=== PATIENT | female | born 1950 | race Caucasian/White ===

== ENCOUNTER 2020-04-12 05:59 | Emergency (ER) | payer MEDICARE, OTHER ==
[~2020-04-12] VITALS: Ht 167.7 cm; Wt 79.5 kg
--- OUTSIDE RECORDS SUMMARY | 2020-04-12 06:08 | XMS REPORT | Continuity of Care Document ---
Author Organization Unknown Address Unknown Phone Unavailable Allergies Active Description Code Type Severity Reaction Onset Reported/Identified Relationship to Patient Clinical Status Yes No Known Allergies No Known Allergies Drug Allergy Unknown N/A 04/09/2020 Medications There is no data. Problems There is no data. Procedures There is no data. Results Test Result Range LIPID PANEL - 06/09/19 08:57 CHOLESTEROL, TOTAL 204 mg/dL <200 HDL CHOLESTEROL 47 mg/dL >50 TRIGLYCERIDES 87 mg/dL <150 LDL-CHOLESTEROL 138 mg/dL (calc) NRG CHOL/HDLC RATIO 4.3 (calc) <5.0 NON HDL CHOLESTEROL 157 mg/dL (calc) <13 0 CMP - 06/09/19 08:57 GLUCOSE 93 mg/dL 65-99 UREA NITROGEN (BUN) 17 mg/dL 7-25 CREATININE 0.85 mg/dL 0.50-0.99 eGFR NON-AFR. AZERBAIJANI 71 mL/min/1.73m2 > OR = 60 eGFR 82 mL/min/1.73m2 > OR = 60 BUN/CREATININE RATIO NOT APPLICABLE (calc) 6-22 SODIUM 143 mmol/L 135-146 POTASSIUM 4.3 mmol/L 3.5-5.3 CHLORIDE 109 mmol/L 98-110 CARBON DIOXIDE 25 mmol/L 20-32 CALCIUM 9.7 mg/dL 8.6-10.4 PROTEIN, TOTAL 6.2 g/dL 6.1-8.1 ALBUMIN 4.2 g/dL 3.6-5.1 GLOBULIN 2.0 g/dL (calc) 1.9-3.7 ALBUMIN/GLOBULIN RATIO 2.1 (calc) 1.0-2. 5 BILIRUBIN, TOTAL 0.4 mg/dL 0.2-1.2 ALKALINE PHOSPHATASE 117 U/L 33-130 AST 15 U/L 10-35 ALT 12 U/L 6-29 CBC W/DIFF - 04/09/20 09:58 BASOPHIL # 0.1 k/cumm 0.0-0.2 BASOPHIL % 0.9 % 0-1 EOSINOPHIL # 0.1 k/cumm 0.1-0.5 EOSINOPHIL % 0.7 % 2-4 GRANULOCYTE # 6.0 k/cumm 2.0-9.0 GRANULOCYTE % 55.6 % 50-75 LYMPHOCYTE # 3.8 k/cumm 1.0-4.0 LYMPHOCYTE % 34.9 % 20-30 MEAN CELL HGB 25.4 pg 27.0-33.0 MEAN CELL HGB CONCENTRATION 30.6 g/dL 32 .0-37.0 MEAN CELL VOLUME 83.0 fl 80.0-100.0 MONOCYTE # 0.8 k/cumm 0.1-1.0 MONOCYTE % 7.4 % 4-6 MEAN PLATELET VOLUME 10.2 fl 8.5-10.9 RED BLOOD CELL 3.35 m/cumm 4.00-6.00 RED CELL DISTRIBUTION WIDTH 14.3 % 11 .0-15.6 WHITE BLOOD CELL 10.8 k/cumm 5.0-10.0 HEMOGLOBIN 8.5 gm/dL 12.0-16.0 HEMATOCRIT 27.8 % 37.0-47.0 NRBC % 0.0 /100 WBC 0.0-0.0 PLATELET COUNT 384 k/cumm 150-400 IMMATURE GRANULOCYTE % 0.5 % 0.0-0.6 IMMATURE GRANULOCYTE # 0.05 k/cumm 0.00- 0.09 METABOLIC PANEL, BASIC - 04/09/20 09:58 POTASSIUM 3.8 mmol/L 3.5-5.3 EST GFR (MDRD) 56 mL/min > 59 ANION GAP 9 mmol/L 5-15 GLUCOSE 145 mg/dL 70-99 CALCIUM 8.9 mg/dL 8.5-10.1 BLOOD UREA NITROGEN 12 mg/dL 7-20 CREATININE 0.98 mg/dL 0.60-1.00 SODIUM 139 mmol/L 135-148 CHLORIDE 107 mmol/L 98-110 CARBON DIOXIDE 23 mmol/L 21-32 THYROID STIM HORMONE (TSH) - 04/09/20 09 :58 THYROID STIM HORMONE (TSH) 1.79 uIU/mL 0 .34-4.82 TROPONIN I BEDSIDE - 04/09/20 10:01 METHOD Bedside TROPONIN I < 0.04 ng/mL < 0.11 Radiology Report from [facility] on 04/09/20 10:50:00 PATIENT NAME: MARYLU HUFFMAN UNIT NO: [id number] EXAMS: CPT CODE: [id number] XR CHEST AP/PA ONLY [id number] REASON FOR EXAM: Cough. Shortness of air. Evaluate for pneumonia. COMPARISON: None TECHNIQUE: Single frontal portable view of the chest. Time of exam: 10:16 AM FINDINGS: The cardiac silhouette is normal in size and shape. Pulmonary vascularity is within normal limits. The lungs show no focal consolidation. No pneumothorax is seen. The mediastinum is not widened. A moderate-sized hilar hernia is seen. The bony and soft tissue structures are age-appropriate. IMPRESSION: 1. No acute cardiopulmonary bodies are seen. 2. Moderate-sized hiatal hernia. at 1045 Reported and signed by: YOAN GUERRERO MD CC: TECHNOLOGIST: SOTERO SCOTT TRANSCRIBED DATE/Time: 04/09/2020 1045 BY: PGRONT EXAM COMPLETE DATE/TIME: [id number] D/TM:04/09/2020 (1050) [facility] NAME: DARÍO HUFFMAN [address] HP: [phone] AGE: 70 S:F [place], [place] [address] : 1950 LOC: [facility] PHYS: Joey Lee MD PHONE #: [phone] EXAM DATE: 04/09/2020 STATUS: REG ER FAX #: [phone] A#: [id number] U#: [id number] PAGE 1 Signed Report *Final Page* Encounters ACCT No. Visit Date/Time Discharge Status Pt. Type Provider Facility Loc./Unit Complaint [id number] 06/16/2019 08:30:00 06/16/2019 23:59: 59 [id number] 06/09/2019 08:45:00 Document Registration [id number] 04/09/2020 09:33:00 020 11:27:00 DIS Emergency Joey Infante MD [facility]
--- NOTE | 2020-04-12 06:22 | ED Cardiac General ---
History of Present Illness General Chief Complaint: Cardiac/General Problems Stated Complaint: CARDIAC PROBLEMS Source: patient, family Exam Limitations: no limitations History of Present Illness Date Seen by Provider: April 12, 2020 Time Seen by Provider: 06:12 Initial Comments 70-year-old female presents to emergency room with daughter present. Patient reports that she noticed rapid heartbeat at 2:50 AM. Patient reports she has a rapid heartbeat and she has had this earlier this week and was seen in the emergency room but her tachycardia reverted to normal sinus rhythm and did not have any treatment.. Her heart was 158 blood pressure 115/86. Additionally the patient states that she was recently diagnosed with anemia with a hemoglobin 8.5 and has an appointment with Dr. Stover at 9:15 this morning. Only other significant past medical history is hypertension treated with diltiazem. She denies chest pain or shortness of breath no history of coughing no fever no signs of young virus infection. No one in her immediate community is ill. Dr. Stover is her attending provider. She denies any symptoms of UTI. She has had both knees replaced and has no difficulty with use at this time. Timing/Duration: 4-6 hours Severity: mild Activities at Onset: rest (started at 2:50 AM) Prior CP/Workup: other (patient reports that 4 days ago she was in the emergency room for rapid heartbeat but this resolved without treatment in the emergency room.) NTG SL RECRUITING ASSISTANT: No ASA po RECRUITING ASSISTANT: No Associated Systoms: Weakness (and dizziness) Allergies and Home Medications Allergies Coded Allergies: No Known Drug Allergies (Unverified , 04/12/20) Patient Home Medication List Home Medication List Reviewed: Yes Review of Systems Review of Systems Constitutional: dizziness (with tachyarrhythmia) EENTM: No Symptoms Reported Respiratory: No Symptoms Reported Cardiovascular: Irregular Heart Rate (tachycardia arrhythmia), Lightheadedness Gastrointestinal: No Symptoms Reported, Other (patient however was recently d iagnosed with the anemia hemoglobin 8.5 and has an appointment with Dr. Stover this morning) Genitourinary: No Symptoms Reported Musculoskeletal: muscle weakness (was likely secondary to anemia hemoglobin 8.5) Skin: no symptoms reported Psychiatric/Neurological: No Symptoms Reported, Anxiety (patient shows some anxiety) Endocrine: No Symptoms Reported Hematologic/Lymphatic: Anemia (recent diagnosis of hemoglobin 8.5) Past Fqthyvg-Tqksxz-Yhgcok Hx Patient Social History Recent Foreign Travel: No Contact w/Someone Who Travel: No Physical Exam Vital Signs Vital Signs - First Documented 04/12/20 06:00 Temp 36.2 Pulse 150 Resp 20 B/P (MAP) 115/86 (96) Pulse Ox 99 O2 Delivery Room Air Capillary Refill : Height, Weight, BMI Height: '" Weight: lbs. oz. kg; BMI Method: General Appearance: Anxious, Mild Distress HEENT: PERRL/EOMI, Normal ENT Inspection Neck: Normal Inspection Respiratory: Chest Non Tender, Lungs Clear, Normal Breath Sounds, No Accessory Muscle Use, No Respiratory Distress Cardiovascular: No Edema, No Gallop, No JVD, No Murmur, Normal Peripheral Pulses, Tachycardia (heart rate 158) Gastrointestinal: Normal Bowel Sounds, No Organomegaly, No Pulsatile Mass, Non Tender, Soft Extremity: Normal Capillary Refill, Normal Inspection, Normal Range of Motion, Non Tender, No Calf Tenderness, No Pedal Edema, Other (scars from bilateral TKA) Neurologic/Psychiatric: Alert, Oriented x3, No Motor/Sensory Deficits, Normal Mood/Affect (with mild anxiety from tachycardia and being in the emergency room), 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 Skin: Normal Color, Warm/Dry, Cool Lymphatic: No Adenopathy Progress/Results/Core Measures Results/Orders Lab Results Laboratory Tests Test 04/12/20 06:25 04/12/20 08:08 Range/Units White Blood Count 11.7 H 4.3-11.0 10^3/uL Red Blood Count 3.27 L 4.35-5.85 10^6/uL Hemoglobin 8.1 L 11.5-16.0 G/DL Hematocrit 27 L 35-52 % Mean Corpuscular Volume 84 80-99 FL Mean Corpuscular Hemoglobin 25 25-34 PG Mean Corpuscular Hemoglobin Concent 30 L 32-36 G/DL Red Cell Distribution Width 14.6 H 10.0-14.5 % Platelet Count 390 130-400 10^3/uL Mean Platelet Volume 11.2 H 7.4-10.4 FL Neutrophils (%) (Auto) 54 42-75 % Lymphocytes (%) (Auto) 34 12-44 % Monocytes (%) (Auto) 9 0-12 % Eosinophils (%) (Auto) 2 0-10 % Basophils (%) (Auto) 1 0-10 % Neutrophils # (Auto) 6.3 1.8-7.8 X 10^3 Lymphocytes # (Auto) 4.0 1.0-4.0 X 10^3 Monocytes # (Auto) 1.0 0.0-1.0 X 10^3 Eosinophils # (Auto) 0.2 0.0-0.3 10^3/uL Basophils # (Auto) 0.1 0.0-0.1 10^3/uL Neutrophils % (Manual) 48 % Lymphocytes % (Manual) 41 % Monocytes % (Manual) 4 % Eosinophils % (Manual) 3 % Basophils % (Manual) 1 % Band Neutrophils 3 % Anisocytosis SLIGHT Elliptocytes SLIGHT Sodium Level 141 135-145 MMOL/L Potassium Level 4.0 3.6-5.0 MMOL/L Chloride Level 105 98-107 MMOL/L Carbon Dioxide Level 20 L 21-32 MMOL/L Anion Gap 16 H 5-14 MMOL/L Blood Urea Nitrogen 17 7-18 MG/DL Creatinine 0.84 0.60-1.30 MG/DL Estimat Glomerular Filtration Rate > 60 BUN/Creatinine Ratio 20 Glucose Level 123 H 70-105 MG/DL Calcium Level 9.2 8.5-10.1 MG/DL Corrected Calcium 9.3 8.5-10.1 MG/DL Magnesium Level 2.1 1.6-2.4 MG/DL Total Bilirubin 0.2 0.1-1.0 MG/DL Aspartate Amino Transf (AST/SGOT) 17 5-34 U/L Alanine Aminotransferase (ALT/SGPT) 16 0-55 U/L Alkaline Phosphatase 99 40-136 U/L Troponin I < 0.30 0.30 <0.30 NG/ML Total Protein 6.2 L 6.4-8.2 GM/DL Albumin 3.9 3.2-4.5 GM/DL My Orders Orders - JOHNNY EGAN DO Diltiazem Injection (Cardizem Injection) (04/12/20 06:23) Ekg Tracing (04/12/20 06:00) Cbc And Manual Diff (04/12/20 07:29) Comprehensive Metabolic Panel (04/12/20 07:29) Magnesium (04/12/20 07:29) Troponin I Fs (04/12/20 07:29) Troponin I Fs (04/12/20 08:30) Chest 1 View Ap/Pa Only (04/12/20 07:30) Medications Given in ED Current Medications Medications Dose Ordered Sig/Melani Route Start Time Stop Time Status Last Admin Dose Admin Diltiazem HCl 25 mg STK-MED ONCE .ROUTE 04/12/20 06:23 04/12/20 06:31 DC 04/12/20 06:35 5 MG Vital Signs/I&O 04/12/20 06:00 Temp 36.2 Pulse 150 Resp 20 B/P (MAP) 115/86 (96) Pulse Ox 99 O2 Delivery Room Air Progress Progress Note : Time: 06:35 Progress Note Diltiazem 5 mg IV given and patient's heart rate dropped down to 84 and regular normal sinus rhythm blood pressure 119/74 patient appears to have responded well to the IV diltiazem. We'll progress the lab to return. Initial ECG Impression Date: April 12, 2020 Initial ECG Impression Time: 06:09 Initial ECG Rate: 147 Initial ECG Rhythm: S.Tach Departure Impression Primary Impression: Supraventricular tachycardia Additional Impression: Anemia Disposition: 01 HOME, SELF-CARE Condition: Improved Departure-Patient Inst. Referrals: YAYA STOVER MD (PCP/Family) Primary Care Physician Patient Instructions: Paroxysmal Supraventricular Tachycardia (DC), Anemia Caused by Low Iron Add. Discharge Instructions: 70-year-old female is being discharged. Patient has a hemoglobin of 8.1 with a white count of 11.7 creatinine 0.84 blood sugar 123 and chest x-ray shows a hiatal hernia EKG was normal with tachycardia reverted back to normal sinus rhythm with a heart rate 71. Patient was given IV diltiazem. Patient also is to follow-up with Dr. Stover for anemia. She did have a troponin that was less than 0.3 on the first test and 0.3 and a second test she will come back in 12 hours for a third troponin she has no symptoms of ischemic heart disease. Follow-up care with Dr. Stover for tachycardia and for anemia. All discharge instructions reviewed with patient and/or family. Voiced understanding. Copy Copies To 1: YAYA STOVER MD, ANTHONY H DO April 12, 2020 06:22
--- NOTE | 2020-04-12 06:43 | NUR ---
SOON THE BOLUS OF CARDIZEM WAS GIVEN THE PT. HEART RATE WAS 80
--- NOTE | 2020-04-12 06:44 | NUR ---
0600 PT. REPORTED SHE WAS NOT HAVING ANY PAIN BUT SHE COULD FEEL HER HEART RACING AND IT HAD BEEN RACING FOR ABOUT 3 HOURS.
[2020-04-12 07:37] LABS: HEMATOCRIT 27 % (35-52); HEMOGLOBIN 8.1 G/DL (11.5-16.0); MEAN CORPUSCULAR HEMOGLOBIN 25 PG (25-34); MEAN CORPUSCULAR HGB CONC 30 G/DL (32-36); MEAN CORPUSCULAR VOLUME 84 FL (80-99); MEAN PLATELET VOLUME 11.2 FL (7.4-10.4); NEUTROPHILS % (AUTO) 54 % (42-75); PLATELET COUNT 390 10^3/uL (130-400); RED CELL DISTRIBUTION WIDTH 14.6 % (10.0-14.5); WHITE BLOOD COUNT 11.7 10^3/uL (4.3-11.0)
[2020-04-12 07:38] LABS: BASOPHILS # (AUTO) 0.1 10^3/uL (0.0-0.1); BASOPHILS % (AUTO) 1 % (0-10); EOSINOPHILS # (AUTO) 0.2 10^3/uL (0.0-0.3); EOSINOPHILS % (AUTO) 2 % (0-10); LYMPHOCYTES % (AUTO) 34 % (12-44); MONOCYTES % (AUTO) 9 % (0-12); NEUTROPHILS # (AUTO) 6.3 X 10^3 (1.8-7.8)
--- NOTE | 2020-04-12 07:46 | Diagnostic Imaging Report ---
CHEST 1 VIEW AP/PA ONLY Indication: Chest pain. Comparison: None available. Findings: No focal airspace disease in the visualized lungs. Please note that the posterior lower lobes are poorly evaluated by portable radiography. No pleural effusion or pneumothorax. Normal heart size. Moderate size hiatal hernia. Impression: 1. No acute cardiopulmonary process by portable radiography. 2. Moderate size hiatal hernia. Dictated by: Dictated on workstation # [id number]
[2020-04-12 07:54] LABS: ALANINE AMINOTRANSFERASE 16 U/L (0-55); ALBUMIN 3.9 GM/DL (3.2-4.5); ALKALINE PHOSPHATASE 99 U/L (40-136); BILIRUBIN,TOTAL 0.2 MG/DL (0.1-1.0); BUN/CREATININE RATIO 20; CALCIUM 9.2 MG/DL (8.5-10.1); CARBON DIOXIDE 20 MMOL/L (21-32); CHLORIDE 105 MMOL/L (98-107); CREATININE SERUM 0.84 MG/DL (0.60-1.30); GFR ESTIMATED > 60; GLUCOSE 123 MG/DL (70-105); MAGNESIUM 2.1 MG/DL (1.6-2.4); SODIUM 141 MMOL/L (135-145); TOTAL PROTEIN 6.2 GM/DL (6.4-8.2)
[2020-04-12 08:52] LABS: ANISOCYTOSIS SLIGHT; BAND NEUTROPHILS 3 %; BASOPHILS % (MANUAL) 1 %; ELLIPT/OVALOCYTES SLIGHT; EOSINOPHILS % (MANUAL) 3 %; LYMPHOCYTES % (MANUAL) 41 %; MONOCYTES % (MANUAL) 4 %; NEUTROPHILS % (MANUAL) 48 %
[2020-04-12 09:10] VITALS: BP 102/69
== END 2020-04-12 09:10 | disposition home or self-care (01) ==
LOC: ER FS 06:04
DX: I47.1 Supraventricular tachycardia (principal); D64.9 Anemia, unspecified; I10 Essential (primary) hypertension
CPT/HCPCS: 36415; 71045; 80053; 83735; 84484; 85007; 85027; 93005

== ENCOUNTER → 2020-04-12 | Outpatient (CLI) | payer MEDICARE, OTHER ==
--- NOTE | 2020-04-12 12:08 | Diagnostic Imaging Report ---
INDICATION: Abdominal pain. COMPARISON: None FINDINGS: 2 supine frontal radiographic views of the abdomen and pelvis were obtained and demonstrate nondistended loops of small bowel. There is no large collection of free peritoneal air. Moderate air and stool are seen scattered throughout the colon. No unexpected extraosseous calcifications or radiopaque foreign bodies are seen. Bony structures show no gross acute abnormalities. IMPRESSION: 1. Nonobstructed small bowel gas pattern. 2. Moderate colonic air and stool. Please correlate for constipation Dictated by: Dictated on workstation # [id number]
== END ==
LOC: LAB FS 11:24
PROVIDERS: ATTEND Family Medicine
DX: D64.9 Anemia, unspecified (principal); R10.9 Unspecified abdominal pain
CPT/HCPCS: 36415; 74018; 82607; 82728; 82746; 83540

== ENCOUNTER → 2020-04-12 | Outpatient (CLI) | payer MEDICARE, OTHER | LOC: LAB FS 11:17 | PROVIDERS: ATTEND Neuromusculoskeletal Medicine & OMM | DX: R00.0 Tachycardia, unspecified (principal) | CPT/HCPCS: 36415; 84484 ==

== ENCOUNTER → 2020-04-18 | Outpatient (CLI) | payer MEDICARE, OTHER | LOC: LAB FS 11:19 | PROVIDERS: ATTEND Family Medicine | DX: D64.9 Anemia, unspecified (principal); R10.9 Unspecified abdominal pain | CPT/HCPCS: 82274 ==

== ENCOUNTER → 2020-05-10 | Outpatient (CLI) | payer MEDICARE, OTHER ==
[2020-05-10 09:59] LABS: BASOPHILS % (AUTO) 1 % (0-10); EOSINOPHILS % (AUTO) 2 % (0-10); HEMATOCRIT 34 % (35-52); HEMOGLOBIN 10.5 G/DL (11.5-16.0); LYMPHOCYTES % (AUTO) 41 % (12-44); MEAN CORPUSCULAR HEMOGLOBIN 26 PG (25-34); MEAN CORPUSCULAR HGB CONC 31 G/DL (32-36); MEAN CORPUSCULAR VOLUME 85 FL (80-99); MEAN PLATELET VOLUME 11.8 FL (7.4-10.4); MONOCYTES % (AUTO) 9 % (0-12); NEUTROPHILS % (AUTO) 47 % (42-75); PLATELET COUNT 339 10^3/uL (130-400); RED CELL DISTRIBUTION WIDTH 19.6 % (10.0-14.5)
[2020-05-10 10:00] LABS: BASOPHILS # (AUTO) 0.1 10^3/uL (0.0-0.1); EOSINOPHILS # (AUTO) 0.2 10^3/uL (0.0-0.3); LYMPHOCYTES # (AUTO) 3.3 X 10^3 (1.0-4.0); MONOCYTES # (AUTO) 0.7 X 10^3 (0.0-1.0); NEUTROPHILS # (AUTO) 3.8 X 10^3 (1.8-7.8)
[2020-05-10 15:37] LABS: ABSOLUTE RETIC # 78 10e9/L (24-90); RETICULOCYTE % 1.91 % (0.50-2.40)
== END ==
LOC: LAB FS 08:09
PROVIDERS: ATTEND Family Medicine
DX: D64.9 Anemia, unspecified (principal)
CPT/HCPCS: 36415; 82607; 85025; 85045

== ENCOUNTER → 2020-08-09 | Outpatient (CLI) | payer MEDICARE, OTHER ==
[2020-08-09 08:59] LABS: HEMATOCRIT 36 % (35-52); HEMOGLOBIN 11.1 G/DL (11.5-16.0); MEAN CORPUSCULAR HEMOGLOBIN 29 PG (25-34); MEAN CORPUSCULAR HGB CONC 31 G/DL (32-36); MEAN CORPUSCULAR VOLUME 92 FL (80-99); WHITE BLOOD COUNT 8.3 10^3/uL (4.3-11.0)
[2020-08-09 09:00] LABS: BASOPHILS # (AUTO) 0.1 10^3/uL (0.0-0.1); BASOPHILS % (AUTO) 1 % (0-10); EOSINOPHILS # (AUTO) 0.2 10^3/uL (0.0-0.3); EOSINOPHILS % (AUTO) 2 % (0-10); LYMPHOCYTES # (AUTO) 3.5 X 10^3 (1.0-4.0); LYMPHOCYTES % (AUTO) 42 % (12-44); MEAN PLATELET VOLUME 11.3 FL (7.4-10.4); MONOCYTES # (AUTO) 0.9 X 10^3 (0.0-1.0); MONOCYTES % (AUTO) 10 % (0-12); NEUTROPHILS # (AUTO) 3.7 X 10^3 (1.8-7.8); NEUTROPHILS % (AUTO) 45 % (42-75); PLATELET COUNT 298 10^3/uL (130-400)
== END ==
LOC: LAB FS 08:19
PROVIDERS: ATTEND Family Medicine
DX: D50.9 Iron deficiency anemia, unspecified (principal)
CPT/HCPCS: 36415; 83540; 83550; 85025

== ENCOUNTER → 2021-04-03 | Outpatient (CLI) | payer MEDICARE, OTHER ==
[2021-04-03 09:49] LABS: MEAN PLATELET VOLUME 10.6 FL (7.4-10.4); WHITE BLOOD COUNT 9.5 10^3/uL (4.3-11.0)
== END ==
LOC: LAB FS 09:31
PROVIDERS: ATTEND Family Medicine
DX: D50.9 Iron deficiency anemia, unspecified (principal)
CPT/HCPCS: 36415; 85027

== ENCOUNTER → 2021-04-25 | Outpatient (CLI) | payer MEDICARE, OTHER ==
[2021-04-25 11:28] LABS: HEMATOCRIT 37 % (35-52); HEMOGLOBIN 11.5 G/DL (11.5-16.0); MEAN CORPUSCULAR HEMOGLOBIN 29 PG (25-34); MEAN CORPUSCULAR VOLUME 92 FL (80-99); WHITE BLOOD COUNT 8.6 10^3/uL (4.3-11.0)
[2021-04-25 11:29] LABS: BASOPHILS # (AUTO) 0.1 10^3/uL (0.0-0.1); BASOPHILS % (AUTO) 1 % (0-10); EOSINOPHILS # (AUTO) 0.2 10^3/uL (0.0-0.3); EOSINOPHILS % (AUTO) 2 % (0-10); LYMPHOCYTES # (AUTO) 3.3 X 10^3 (1.0-4.0); LYMPHOCYTES % (AUTO) 38 % (12-44); MEAN CORPUSCULAR HGB CONC 31 G/DL (32-36); MEAN PLATELET VOLUME 11.1 FL (7.4-10.4); MONOCYTES # (AUTO) 0.8 X 10^3 (0.0-1.0); MONOCYTES % (AUTO) 10 % (0-12); NEUTROPHILS # (AUTO) 4.2 X 10^3 (1.8-7.8); NEUTROPHILS % (AUTO) 49 % (42-75); PLATELET COUNT 293 10^3/uL (130-400)
[2021-04-25 12:00] LABS: CARBON DIOXIDE 21 MMOL/L (21-32); CHLORIDE 106 MMOL/L (98-107); SODIUM 139 MMOL/L (135-145)
[2021-04-25 12:01] LABS: ALANINE AMINOTRANSFERASE 12 U/L (0-55); ALBUMIN 4.2 GM/DL (3.2-4.5); ALKALINE PHOSPHATASE 140 U/L (40-136); BILIRUBIN,TOTAL 0.3 MG/DL (0.1-1.0); BUN/CREATININE RATIO 18; CALCIUM 9.3 MG/DL (8.5-10.1); CREATININE SERUM 0.83 MG/DL (0.60-1.30); GFR ESTIMATED > 60; GLUCOSE 102 MG/DL (70-105); TOTAL PROTEIN 6.7 GM/DL (6.4-8.2)
[2021-04-25 14:53] LABS: TRIGLYCERIDES 86 MG/DL (<150); VLDL CHOLESTEROL 17 MG/DL (5-40)
[2021-04-25 14:58] LABS: CHOLESTEROL 175 MG/DL (< 200)
[2021-04-25 14:59] LABS: HDL CHOLESTEROL 50 MG/DL (40-60)
== END ==
LOC: LAB FS 11:06
PROVIDERS: ATTEND Family Medicine
DX: I10 Essential (primary) hypertension (principal); D64.9 Anemia, unspecified
CPT/HCPCS: 36415; 80053; 80061; 82607; 85025

== ENCOUNTER → 2021-05-22 | Outpatient (CLI) | payer SELFPAY ==
--- NOTE | 2021-05-22 15:34 | Diagnostic Imaging Report ---
INDICATION: Family history of heart disease CT calcium scoring study performed with CT images of the cardiac silhouette with calculation of cardiac score. The visualized portions of the lung cook show no pulmonary parenchymal infiltrates or lesions. There is a large hiatal hernia noted. Aorta was not aneurysmal. The heart is mildly enlarged. There are extensive coronary calcifications. Pancreatic calcium score is as follows 1037 for LAD. 1771.6 for circumflex coronary artery. 506.8 for right coronary artery. Left vein coronary arteries showed 0 score. IMPRESSION: Overall calcium score is 3315.4, compatible with severe overall plaque burden. Incidental finding of large hiatal hernia is noted. Dictated by: Dictated on workstation # [id number]
== END ==
LOC: RAD FS 13:33
PROVIDERS: ATTEND Family Medicine
DX: K44.9 Diaphragmatic hernia without obstruction or gangrene (principal); Z82.49 Family history of ischemic heart disease and other diseases of the circulatory system
CPT/HCPCS: 75571

== ENCOUNTER → 2021-09-12 | Outpatient (CLI) | payer MEDICARE, OTHER | LOC: LAB FS 07:58 | PROVIDERS: ATTEND Family Medicine | DX: U07.1 COVID-19 (principal) | CPT/HCPCS: 36415; 86769 ==

== ENCOUNTER → 2021-09-19 | Outpatient (CLI) | payer MEDICARE, OTHER ==
[2021-09-19 08:25] LABS: HEMATOCRIT 34 % (35-52); HEMOGLOBIN 10.7 g/dL (11.5-16.0); MEAN CORPUSCULAR HEMOGLOBIN 27 pg (25-34); MEAN CORPUSCULAR HGB CONC 31 g/dL (32-36); MEAN CORPUSCULAR VOLUME 88 fL (80-99); PLATELET COUNT 325 10^3/uL (130-400); WHITE BLOOD COUNT 7.8 10^3/uL (4.3-11.0)
[2021-09-19 08:26] LABS: MEAN PLATELET VOLUME 10.7 fL (9.0-12.2)
== END ==
LOC: LAB FS 07:54
PROVIDERS: ATTEND Family Medicine
DX: D50.9 Iron deficiency anemia, unspecified (principal); G25.0 Essential tremor
CPT/HCPCS: 36415; 84443; 85027

== ENCOUNTER → 2021-11-07 | Outpatient (CLI) | payer MEDICARE, OTHER ==
[2021-11-07 15:43] LABS: TRIGLYCERIDES 62 MG/DL (<150); VLDL CHOLESTEROL 12 MG/DL (5-40)
[2021-11-07 15:48] LABS: CHOLESTEROL 119 MG/DL (< 200)
[2021-11-07 15:49] LABS: HDL CHOLESTEROL 47 MG/DL (40-60)
== END ==
LOC: LAB FS 08:01
DX: I25.118 Atherosclerotic heart disease of native coronary artery with other forms of angina pectoris (principal)
CPT/HCPCS: 36415; 80061

== ENCOUNTER → 2021-12-11 | Outpatient (CLI) | payer MEDICARE, OTHER | LOC: LABNPT 15:11 | PROVIDERS: ATTEND Family Medicine | DX: U07.1 COVID-19 (principal) | CPT/HCPCS: 87635 ==

== ENCOUNTER → 2022-05-08 | Outpatient (CLI) | payer MEDICARE, OTHER ==
[2022-05-08 08:22] LABS: BASOPHILS # (AUTO) 0.1 10^3/uL (0.0-0.1); BASOPHILS % (AUTO) 1 % (0-10); EOSINOPHILS # (AUTO) 0.2 10^3/uL (0.0-0.3); EOSINOPHILS % (AUTO) 2 % (0-10); HEMATOCRIT 42 % (35-52); HEMOGLOBIN 12.7 g/dL (11.5-16.0); LYMPHOCYTES # (AUTO) 3.3 10^3/uL (1.0-4.0); LYMPHOCYTES % (AUTO) 39 % (12-44); MEAN CORPUSCULAR HEMOGLOBIN 30 pg (25-34); MEAN CORPUSCULAR HGB CONC 31 g/dL (32-36); MEAN CORPUSCULAR VOLUME 97 fL (80-99); MEAN PLATELET VOLUME 11.2 fL (9.0-12.2); MONOCYTES # (AUTO) 0.8 10^3/uL (0.0-1.0); MONOCYTES % (AUTO) 10 % (0-12); NEUTROPHILS # (AUTO) 3.9 10^3/uL (1.8-7.8); NEUTROPHILS % (AUTO) 47 % (42-75); PLATELET COUNT 226 10^3/uL (130-400); WHITE BLOOD COUNT 8.4 10^3/uL (4.3-11.0)
[2022-05-08 08:45] LABS: ALBUMIN 4.1 GM/DL (3.2-4.5); BILIRUBIN,TOTAL 0.4 MG/DL (0.1-1.0); CALCIUM 9.4 MG/DL (8.5-10.1); CREATININE SERUM 0.78 MG/DL (0.60-1.30); TOTAL PROTEIN 6.7 GM/DL (6.4-8.2)
== END ==
LOC: LAB FS 08:06
PROVIDERS: ATTEND Family Medicine
DX: E61.1 Iron deficiency (principal); E78.5 Hyperlipidemia, unspecified
CPT/HCPCS: 36415; 80053; 80061; 85025